=== PATIENT | female | born 1960 | race Hispanic/Latino ===

== ENCOUNTER 2017-06-21 06:41 | Outpatient (CLI) | payer OTHER ==
[2017-06-21 07:47] LABS: Blood Urea Nitrogen 17 mg/dL (7-17)
--- NOTE | 2017-06-21 10:17 | Cat Scan Report ---
CT abdomen and pelvis with contrast: Abdominal pain. Following IV and oral contrast sections are obtained from lower chest to the ischium with coronal and sagittal 2-D reformatted images. There is focal atelectasis in the anteromedial right lung contiguous with the mediastinal fat. The patient had a cholecystectomy. The overall attenuation of the liver is diminished with no focal finding. The abdominal organs are not otherwise remarkable. The retroperitoneal organs also appear normal. There is mural calcification of a nondilated abdominal aorta. The partially opacified bowel mesentery is grossly normal. It is of note that there is focal skin thickening and subcutaneous opacity of the fat in the right mid abdominal wall. The patient's reproductive organs have been removed. Impressions: 1. Unexplained thickening of the right abdominal wall and subcutaneous tissues. Clinical/history correlation advised. 2. No significant intra-abdominal findings.
== END 2017-06-21 06:42 | disposition home or self-care (01) ==
LOC: CT 06:41
PROVIDERS: ATTEND Family Medicine
DX: R19.04 Left lower quadrant abdominal swelling, mass and lump (principal); R10.32 Left lower quadrant pain; J98.11 Atelectasis; I70.0 Atherosclerosis of aorta; Z90.49 Acquired absence of other specified parts of digestive tract; Z90.722 Acquired absence of ovaries, bilateral
CPT/HCPCS: 36415; 74177; 82565; 84520; Q9967

== ENCOUNTER 2019-03-18 08:57 | Outpatient (CLI) | payer OTHER ==
--- NOTE | 2019-03-18 13:10 | Mammography Report ---
DIGITAL SCREENING MAMMOGRAM WITH CAD, 03/18/2019 INDICATION: Routine screening mammography. TECHNIQUE: Digital bilateral 2D mammography was obtained in the craniocaudal and mediolateral obliq ue projections. This examination was interpreted with the benefit of Computer-Aided Detection analysi s. COMPARISON: 06/21/2013 FINDINGS: Breast Density: The breasts are heterogeneously dense, which may obscure small masses. There is no evidence of dominant mass, suspicious calcifications or architectural distortion in eithe r breast. Bilateral benign calcifications. IMPRESSION: No mammographic evidence of malignancy. Follow up recommendation: Routine yearly BI-RADS Category 2: Benign. A "normal" or negative report should not discourage follow up or biopsy of a clinically significant f inding. A written summary of these findings will be mailed to the patient. The patient will be entered into a mammography reporting system which will generate a reminder letter for the patient's next appointmen t at the appropriate interval. The [employer] recommends yearly mammograms starting at age 40 and continuing as l mike as a woman is in good health. Breast MRI is recommended for women with an approximate 20-25% or greater lifetime risk of breast cancer, including women with a strong family history of breast or ova vimal cancer or who have been treated for Hodgkin's disease. Signer Name: Zain Ohara MD Signed: 03/18/2019 1:06 PM Workstation Name: [id number]
== END 2019-03-18 08:58 | disposition home or self-care (01) ==
LOC: MAMMO 08:57
PROVIDERS: ATTEND Family Medicine
DX: Z12.31 Encounter for screening mammogram for malignant neoplasm of breast (principal)
CPT/HCPCS: 77067